=== PATIENT | female | born 1975 | race African-American/Black ===

== ENCOUNTER 2017-11-09 22:20 | Emergency (ER) | payer BC ==
[~2017-11-09] VITALS: Ht 162.6 cm; Wt 72.6 kg
[2017-11-09 22:32] VITALS: BP_SYST 127
[2017-11-09] MEDS ORDERED: CYCLOBENZAPRINE HCL 10 MG TABLET (FLEXERIL) PO ONE (23:15)
[2017-11-09] MEDS ORDERED: KETOROLAC TROMETHAMINE 30 MG VIAL IM ONE (23:15)
[2017-11-10 01:23] VITALS: BP_SYST 127
== END 2017-11-10 01:23 | disposition home or self-care (01) ==
LOC: SED 22:20
DX: S16.1XXA Strain of muscle, fascia and tendon at neck level, initial encounter (principal); E04.1 Nontoxic single thyroid nodule; Z88.6 Allergy status to analgesic agent; Z88.5 Allergy status to narcotic agent; X58.XXXA Exposure to other specified factors, initial encounter; Y93.B9 Activity, other involving muscle strengthening exercises; Y92.89 Other specified places as the place of occurrence of the external cause; Y99.8 Other external cause status
CPT/HCPCS: 72125; 81025; 96372; 99284; J1885